=== PATIENT | male | born 1955 | race Two or more races ===

== ENCOUNTER 2022-09-24 01:54 | Emergency (ER) | payer OTHER ==
[~2022-09-24] VITALS: Ht 193 cm; Wt 154.7 kg
[2022-09-24] MEDS ORDERED: ZYLOPRIM100 M1 (02:01)
[2022-09-24] MEDS ORDERED: VALTREX1000 MG PO (08:22)
[2022-09-24] MEDS ORDERED: KETO10TA2 PO (08:22)
[2022-09-24] MEDS ORDERED: CIPRO500 MG PO (08:23)
== END 2022-09-24 09:18 ==
LOC: ER 01:54
DX: N20.0 Calculus of kidney (principal); K42.9 Umbilical hernia without obstruction or gangrene; R10.9 Unspecified abdominal pain; B02.9 Zoster without complications; R11.2 Nausea with vomiting, unspecified